=== PATIENT | female | born 1945 | race Caucasian/White ===

== ENCOUNTER 2016-09-20 12:35 | Outpatient (CLI) | payer OTHER ==
[~2016-09-20 12:35] MED LIST: ABILIFY5 MG PO; ASPIRIN81 M1 PO; ATACAND8 MG PO; BENZTROPINE ME0.5 MG PO; CEPHALEXIN500 MG PO; CITALOPRAM HYDR20 MG PO; COREG3.125 MG PO; COZAAR25 MG PO; FERROUS SULFAT325 M1 PO; FUROSEMIDE40 MG PO; MICRO-K 10 EQU10 MEQ PO; MYSOLINE50 MG PO; NORVASC2.5 MG PO; PRAVACHOL40 MG PO; PRILOSEC40 MG PO; PRISTIQ50 MG PO; PROBIOTI1 PO; RISPERDAL0.25 MG PO
--- NOTE | 2016-09-23 16:27 | DIAGNOSTIC IMAGING REPORT ---
REFERRING PHYSICIAN/PROVIDER: Dr. Alcantara CONSULTING SUSTAINABILITY PURCHASING AGENT: Tierra Alcantara MD PROCEDURE: Echocardiogram TECHNICAL QUALITY: fair INDICATION: CARDIOMYOPATHY Interpretation Summary Normal sinus rhythm. Normal LV size and wall thickness; borderline reduced LV function; EF is 45-50%. Mild LA enlargement; otherwise normal chamber sizes. No significant valvular abnormalities. Compared to prior study 07/16/2016 LV is more dynamic. EF is up from 40-45% to 45-50%. Procedure: The study quality was technically difficult. The patient was in normal sinus rhythm during the exam. Left Ventricle: The left ventricle is normal in size, wall thickness, and systolic function without any focal wall motion abnormalities. The ejection fraction is estimated to be 45-50%. EPSS is 4 mm (wnl). There is borderline global hypokinesis of the left ventricle. Right Ventricle: The right ventricle is normal in size, thickness and function. Atria: The left atrium is mildly dilated. End-systolic diameter in PL axis view is 40.8 mm. The right atrium is normal in size. A prominent eustachian valve is noted. Mitral Valve: The mitral valve is normal. There is mild mitral regurgitation. Aortic Valve: The aortic valve is trileaflet. No aortic regurgitation is present. Tricuspid Valve: The tricuspid valve is normal. There is mild tricuspid regurgitation. Estimated PA systolic pressure is 38 mm Hg assuming RA pressure of 8 mm Hg. Pulmonic Valve: There is mild pulmonic regurgitation. Great Vessels: The IVC is of normal diameter and collapses less than 50% with a sniff. This suggests a right atrial pressure of 8 mm Hg. Reading Physician:
== END 2016-09-20 23:00 ==
LOC: US SRH 12:35
DX: I37.1 Nonrheumatic pulmonary valve insufficiency (principal)